=== PATIENT | male | born 1980 | race Caucasian/White ===

== ENCOUNTER 2019-01-24 10:27 | Emergency (ER) | payer SELFPAY ==
[~2019-01-24] VITALS: Ht 172.7 cm; Wt 79.4 kg
[2019-01-24] MEDS ORDERED: CLEOCIN HCL300 MG PO (14:17)
== END 2019-01-24 14:33 | disposition home or self-care (01) ==
LOC: ED 10:27
DX: K04.7 Periapical abscess without sinus (principal); F17.200 Nicotine dependence, unspecified, uncomplicated
CPT/HCPCS: 80053; 85025; 96374; 96375; 99283-25; 99406; J1100; J1885; J2405